=== PATIENT | male | born 1990 | race Caucasian/White ===

== ENCOUNTER → 2019-02-17 | Outpatient (CLI) | payer OTHER ==
--- NOTE | 2019-02-23 22:28 | PFR/MVV ---
[facility] [place] [address] PULMONARY FUNCTION MVV/REPORT Name: NAVEED STEVENSON [id number]: 02/17/19 Attend Phys: Physician not on staff Discharge: Date of : 86 Report #: [id number] THIS REPORT FOR: //name// >> SPIROMETRY: (BTPS) Height: 72 in cm Weight: 253 lbs kg Exam Date: 02/17/19 PRE-RX POST-RX PRED BEST %PRED BEST %PRED %CHG FVC LITERS . 5.66 . 6.21 . 110 . 6.39 . 113 . 3 FEV1 LITERS . 4.40 . 4.38 . 99 . 4.66 . 106 . 6 FEV1/FVC % . 77 . 71 . 91 . 73 . 94 . 3 RXL73-31% L/Sec . 4.55 . 3.01 . 66 . 3.60 . 79 . 20 PEF L/SEC . 10.14 . 9.42 . 93 . 9.92 . 98 . 5 FEF50/FIF50 UNITLESS . <1.00 . 0.95 . . 0.61 . . -36 MVV L/Min . 185 . 69 . 37 f 1/Min . . 210 . >> LUNG VOLUMES: (BTPS) PRE-RX POST-RX PRED AVG %PRED AVG %PRED %CHG VC Liters . 5.66 . 6.22 . 110 . . . TLC Liters . 7.59 . 6.48 . 85 . . . RV Liters . 2.00 . 0.26 . 13 . . . RV/TLC % . 27 . 4 . 15 . . . FRC PL Liters . 3.50 . 1.06 . 30 . . . FRC N2 Liters . 3.50 . . . . . ERV Liters . 1.88 . 0.80 . 42 . . . IC Liters . 3.75 . 5.27 . 140 . . . >> DIFFUSION: DLCO ml/Min/mmHg . 36.2 . 36.1 . 100 . . . DL Navin ml/Min/mmHg . 36.2 . 36.1 . 100 . . . DLCO/VA ml/Min/mmHg . 4.51 . 4.84 . 107 . . . VA Liters . 7.54 . 7.45 . 99 . . . COMMENTS: COMMENTS: >> RESISTANCE: [facility] [address] [place] [address] PULMONARY FUNCTION MVV/REPORT Name: NAVEED STEVENSON [place] Room #: REG ODILIA Evans.#: [id number] Admission: 02/17/19 Attend Phys: Physician not on staff Discharge: Date of : 86 Report #: [id number] PRE-RX PRED AVG %PRED Raw Total cmH20/L/Sec . . 2.11 . Raw Insp cmH20/L/Sec . . 1.52 . Raw Exp cmH20/L/Sec . . 1.73 . Raw cmH20/L/Sec . 1.29 . 1.74 . 135 Gaw L/Sec/cmH20 . 0.840 . 0.574 . 68 sRaw cmH20 Sec . 4.51 . 7.26 . 161 sGaw l/cmH20 Sec . 0.222 . .138 . 62 Vtq Liters . . 4.17 . # = OUTSIDE 95% CONFIDENCE INTERVAL CALIBRATION: PRED: 3.00 ACTUAL: EXP 3.01 INSP 3.02 [facility]-OL10-06 [facility]--05 N-1804-4 >> INTERPRETATION/IMPRESSION: CC: FAM unknown OPRFIRIO MARINO Physician staff FEV1 is 4.38 liters (99%), FVC is 6.21 liters (110%), FEV1/FVC ratio is 71%. There is no significant response to bronchodilator therapy. LUNG VOLUMES: Total lung capacity is normal at 6.48 liters (85%). RV is normal. Diffusing capacity is 100%. IMPRESSION: Pulmonary function studies are essentially normal. <ELECTRONICALLY SIGNED> By: Raman Bone MD 02/23/19 2228 Raman Bone MD /nt
== END ==
LOC: PUL 13:10
DX: R05 Cough (principal)